=== PATIENT | female | born 1995 ===

== ENCOUNTER 2016-08-30 07:25 | Emergency (ER) | payer OTHER ==
[2016-08-30 07:49] VITALS: BMI 35.5
--- NOTE | 2016-08-30 10:04 | OBHP ---
Datetime: 08/30/2016 08:17 IP Adm Impression: Term, intrauterine IP Admit Plan: Observation/Evaluation Admit Comment, IP Provider: 21 year old , 1 SAB, 40+2wks by early u/s presents with complaints o f contractions that began last night, intesified this AM around 05:00, and moderate amount vaginal bl eeding that began around that time. She denies LOF, reports good movement. Last coitus 2 days a go. She has not eaten today. Care: [place] labs: GBS negative, rubella immune, VDRL: neg/neg, hpbSag: ng, HIV neg/neg, gc/ctL neg/ne g O: mild distress due to pain A: IUP 40+2 weeks in latent labor. vaginal bleeding likely secondary to cervical changes. P: will observe, monitor FHT, Re-check pt in [address] patel OB ADDENDUM: pt seen _ examined by me agree with above repeat exam @ 10:00 1.5cm/50/-3 p: d/c home labor precautions Extremities - PN: Normal Lungs - PN: Normal Heart - PN: Normal Neurologic - PN: Normal HEENT - PN: Normal General - PN: Normal FHR - Baseline A Provider: 110 Comments, ACOG Physical Exam: Sterile speculem exam: pooling of blood in speculum, cervical os visua lized small amount noted on glod after digital exam Gestation - Est Wks by US: 40+2 EGA AdmitDate IP: 40.2 Vital Signs Provider: Reviewed IP Chief Complaint: Vaginal bleeding NICHD Variability Prov Fetus A: Moderate 6-25bpm (Annotations: Data stored by CPN on behalf of user) NICHD Accel Fetus A IP Provider: 15X15 FHR Category Provider Fetus A: Category I NICHD Decel Fetus A IP Provider: None Dilatation, Provider: 1cm Effacement, Provider: thick Station, Provider: -2 Genitourinary Exam: Normal
== END 2016-08-30 23:00 | disposition home or self-care (01) ==
LOC: H.EROB2 07:25
DX: O47.1 False labor at or after 37 completed weeks of gestation (principal); Z3A.40 40 weeks gestation of pregnancy; O48.0 Post-term pregnancy

== ENCOUNTER 2016-08-31 09:27 | Inpatient (IN) | payer OTHER ==
[2016-08-31] MEDS: Lactated Ringer's 1,000 ML IV SCH ×4 (10:45→22:55)
[2016-08-31 11:06] VITALS: O2SAT 100
[2016-08-31 11:08] LABS: BASO % 0.2 % (0.0-2.0); EOS % 0.1 % (0.0-4.0); HEMATOCRIT 37.4 % (34.0-47.0); LYMPH # 1.5 K/uL (1.0-4.3); LYMPH % 9.4 % (20.0-40.0); MEAN CELL VOLUME 87.8 fl (81.0-99.0); MEAN CORPUSCULAR HEMOGLOBIN 29.4 pg (27.0-31.0); MEAN CORPUSCULAR HGB CONC 33.4 g/dL (33.0-37.0); MEAN PLATELET VOLUME 9.5 fl (7.2-11.7); MONO # 0.8 K/uL (0.0-0.8); MONO % 4.8 % (0.0-10.0); NEUT # 13.5 K/uL (1.8-7.0); NEUT % 85.5 % (50.0-75.0); PLATELET COUNT 240 K/uL (130-400); RED CELL DISTRIBUTION WIDTH 13.9 % (11.5-14.5); WHITE BLOOD COUNT 15.8 K/uL (4.8-10.8)
[2016-08-31] MEDS ORDERED: Oxytocin 30 units/LR 500ML 30 U/500 ML BAG IV ONE ×2 (11:23→20:44)
[2016-08-31] MEDS ORDERED: Fentanyl/Bupivacaine HCl 250 ML EPI ONE (11:41)
[2016-08-31 11:55] LABS: NEUTROPHIL 85 % (42-75); TOTAL CELLS COUNTED 100
--- NOTE | 2016-08-31 18:21 | OBADHP ---
Datetime: 08/31/2016 16:16 Presentation-Admit: Vertex IP Fetus A Comments: resolved late decel FHR - Baseline A Provider: 130 Contraction Comments Provider: 2-4min Vital Signs Provider: Reviewed NICHD Variability Prov Fetus A: Moderate 6-25bpm NICHD Accel Fetus A IP Provider: 15X15 FHR Category Provider Fetus A: Category I Dilatation, Provider: 4 Effacement, Provider: 90 Station, Provider: -2 Datetime: 08/31/2016 12:23 Pelvic Type - PN: Adequate Extremities - PN: Normal Abdomen - PN: Normal Lungs - PN: Normal Heart - PN: Normal General - PN: Normal Amniotic Fluid Color, Provider: Clear Membranes, Provider: Ruptured Pool Provider: Positive Nitrazine Provider: Positive IP Chief Complaint: Uterine contractions; Suspected ruptured membranes NICHD Decel Fetus A IP Provider: None Genitourinary Exam: Normal EGA AdmitDate IP: 40.3 IP Adm Impression: Term, intrauterine ; Active labor IP Admit Plan: Admit to unit; Initiate labor protocol; Initiate labor induction protocol Datetime: 08/31/2016 10:42 Admit Comment, IP Provider: 21 year old , 1 SAB, 40.3wks by U/S was here for contractions and V B yesterday. She was 1cm, she was monitored and sent home. - Today she is complaining of CTX and LOF. - She states the ctx continued to get stonger since she went home. At 5 am the contractions starte d occuring every 5 min. - At 7 am she noticed a gush of fluid from the vagina which has continued leaking. - Reports good movement. Last coitus 3 days ago. Has been taking her vitamins daily . LAst U/S was first week of july and the baby was aprox was 6lb. Care: [place] labs: GBS negative, rubella immune, VDRL: neg/neg, hpbSag: ng, HIV neg/neg, gc/ctL neg/ne g O: mild distress due to pain A: IUP 40.3 weeks is being admited for CTX and LOF, being admitted for initiation of labor potocol . P: - Continuous monitoring - Initiate labor protocol - IV fluid bolus - Oxytocin 30mg - Anaesthesia consult appreciated for epidural - CBC, Type and screen, RPR Case d.w dr amanda Diamond PGY-1 obh addendum: pt seen _ examinedby me with . agree with assessment andplan. Comments, ACOG Physical Exam: Speculum exam: Pooling noted, clear fluid Datetime: 08/30/2016 08:17 Neurologic - PN: Normal HEENT - PN: Normal Gestation - Est Wks by US: 40+2
--- NOTE | 2016-08-31 18:29 | OBPN ---
Datetime: 08/31/2016 16:16 IP Progress Impression: Rupture of membranes IP Progress Plan: Augmentation Contraction Comments Provider: 2-4min FHR - Baseline A Provider: 130 IP Fetus A Comments: resolved late decel Presentation-Admit: Vertex IP Progress Note Comment: s: comfortable with epdural p: restart pit at 1mU. pt advised of resolution of prior late decels and that pit is to be restarted Vital Signs Provider: Reviewed NICHD Accel Fetus A IP Provider: 15X15 FHR Category Provider Fetus A: Category I NICHD Variability Prov Fetus A: Moderate 6-25bpm Dilatation, Provider: 4 Effacement, Provider: 90 Station, Provider: -2 Datetime: 08/31/2016 12:23 Pool Provider: Positive Nitrazine Provider: Positive Membranes, Provider: Ruptured Amniotic Fluid Color, Provider: Clear NICHD Decel Fetus A IP Provider: None Datetime: 08/30/2016 08:17 Gestation - Est Wks by US: 40+2
[2016-08-31] MEDS ORDERED: ceFAZolin 2 GM in Sodium Chloride 0.9% 100 ML IVPB ONE (19:06)
[2016-08-31] MEDS ORDERED: Phenylephrine 10 mg/ml Inj ONE (19:14)
[2016-08-31] MEDS ORDERED: ePHEDrine 50 mg/ml Inj ONE (19:14)
[2016-08-31] MEDS ORDERED: Lidocaine 2% PF (10 ml) Amp ONE (19:14)
[2016-08-31] MEDS ORDERED: Lactated Ringer's 1,000 ML IV SCH (19:15)
[2016-08-31] MEDS ORDERED: Bupivacaine HCl/Epi 0.5% 1:20000 30 ML SOL IJ ONE (19:15)
[2016-08-31] MEDS ORDERED: Midazolam 2 MG/2 ML VIAL ONE (20:09)
[2016-08-31] MEDS ORDERED: Morphine 1 mg/ml preservative-free Inj(Duramorph) ONE (20:37)
[2016-08-31] MEDS ORDERED: Oxycodone/Acetaminophen 5/325 mg Tab PO PRN ×3 (21:24→21:42)
[2016-08-31] MEDS ORDERED: DiphenhydrAMINE 50 mg/ml Inj IVP PRN (21:42)
[2016-08-31 21:55] VITALS: BP 110/65; PULSE 110; RESP 16; TEMP 98
[2016-08-31] MEDS ORDERED: Simethicone 80 mg Chewtab PO SCH (22:00)
[2016-09-01] MEDS ORDERED: Lactated Ringer's 1,000 ML IV SCH (00:32)
[2016-09-01] MEDS ORDERED: DiphenhydrAMINE 50 mg/ml Inj IVP PRN (00:32)
[2016-09-01] MEDS ORDERED: Oxycodone/Acetaminophen 5/325 mg Tab PO PRN ×2 (00:32)
--- NOTE | 2016-09-01 07:13 | OP ---
PROCEDURE DATE: 08/31/2016 PREOPERATIVE DIAGNOSES: 1. A 40.3 week . 2. intolerance to contractions. 3. Spontaneous rupture of membranes. POSTOPERATIVE DIAGNOSES: 1. A 40.3 week . 2. intolerance to contractions. 3. Spontaneous rupture of membranes. SURGEON: Shahla Zhu MD. FIRST MEDICAL SOCIAL WORKER: Dr. Willa Garcia. SECOND MEDICAL SOCIAL WORKER: Dr. Mira Scruggs, PGY-1. ANESTHESIOLOGIST: Dr. Rodriguez. ANESTHESIA: Epidural. FINDINGS: Showed a viable male with a nuchal cord in direct OP presentation, Apgars of 9 and 9, and weight of 7 pounds 15 ounces. ESTIMATED BLOOD LOSS: 650 mL. COMPLICATIONS: There were no complications. DESTINATION: The patient to recovery room in satisfactory condition and to nursery. Ruiz catheter placed to drainage. INDICATIONS: The patient is a 21-year-old female, 2, para 0-0-1-0 who presented at 40.3 weeks with spontaneous rupture of membranes and irregular contractions. She was admitted and received an epidural. Following the epidural, augmentation with Pitocin was initiated. The patient developed late variable type decelerations and so the Pitocin was discontinued. Following recovery the pitocin was restarted and recurrent late decelerations occurred. The pitocin was discontinued and indications for were discussed with the patient. An informed consent was obtained. PROCEDURE: The patient was taken to the operating room where her epidural was topped off. She was placed in dorsal supine position with a leftward tilt and prepped and draped in routine sterile fashion. A Pfannenstiel skin incision was made with the knife and this was carried down to the underlying rectus fascia, which was incised in the midline and extended bilaterally. The inferior rectus fascial edge was grasped with Kochers and the underlying rectus muscle dissected off. The same procedure was performed along the superior rectus fascial edge. The peritoneum was identified, tented upward and incised superiorly and inferiorly. The bladder blade was placed and a bladder flap created using sharp and blunt dissection. A lower uterine transverse incision was made with the knife and the uterine cavity entered with the Deanne. The uterine incision was extended manually in a superior and inferior manner. The was noted to be direct OP. The 's head was delivered followed by remaining portion of the baby. The mouth and nares were suctioned. Cord was clamped and cut. The baby had handed off to the awaiting manufacturing scheduler. Cord blood was collected. Placenta was delivered spontaneously and intact. The uterus was exteriorized and cleared of all clots and debris. The uterine incision was reapproximated with 0 Monocryl in a running locked fashion followed by an imbricated stitch with 0 Monocryl. Excellent hemostasis obtained. The abdomen was irrigated and cleared of all clots and debris. The uterus was returned to the abdomen. The uterine incision was reinspected and excellent hemostasis confirmed. The pelvis was irrigated and cleared of all clots and debris. The peritoneum was reapproximated with 2-0 plain in a running fashion. The muscles were reapproximated with 2-0 Vicryl in a simple interrupted fashion. The fascia was reapproximated with 0 Vicryl in a running fashion beginning in the right lateral corner going to midline, another stitch beginning left lateral corner going to midline, each suture was tied individually. The wound was irrigated. Excellent hemostasis confirmed. The subcutaneous layer was closed with 2-0 plain gut in a simple interrupted fashion. The skin was reapproximated with subcuticular stitches of 4-0 Monocryl. All sponge, lap, needle counts were correct x 2. The patient returned to recovery room in satisfactory condition. Of note, Dr. Willa Garcia was my first surgical garment inspector. She assisted in surgical entry, surgical exposure, hemostasis, delivery of the baby and surgical closure. Shahla Zhu MD cc: [id number] TT: 09/01/2016 07:12:55 nestor PATEL
[2016-09-01] MEDS: Simethicone 80 mg Chewtab PO SCH ×4 (11:02→22:49)
--- NOTE | 2016-09-01 17:29 | CP.PCM.CON ---
History of Present Illness - History of Present Illness History of Present Illness: 21 y/o female with PMH was admitted at 40 week for delivery. Patient underwent yesterday. Medicine consult called for HR >100 Patient at present complaining of pain to surgical incision . Denies any chest pain, palpitations, SOB, dizziness. Ruiz catheter removed around 12 Pm and able to void freely.Denies any calf tenderness. Has been having vaginal bleeding post normal quantity. At present Bp 97/57 Hr 107 afebrile 98.6 saturating 100 5 in RA Allergies ; NKDA PMH ; none Medications; vitamins Surgery ; Family history : grandparents had DM Social history ; lives in [place] with mother, denies any toxic habits ROS ; 14 point review of system negative except above in History Review of Systems - Review of Systems All systems: reviewed and no additional remarkable complaints except Past Patient History - Infectious Disease Hx of Infectious Diseases: None - Tetanus Immunizations Tetanus Immunization: Unknown - Past Medical History & Family History Past Medical History?: No Past Family History: Reviewed and not pertinent - Past Social History Smoking Status: Never Smoked Chewing Tobacco Use: No Cigar Use: No Alcohol: None Drugs: Denies Home Situation {Lives}: With Family Domestic Violence: Negative Meds Allergies/Adverse Reactions: Allergies Allergy/AdvReac Type Severity Reaction Status Date / Time No Known Allergies Allergy Verified 08/30/16 07:49 - Medications Medications: Current Medications Diphenhydramine HCl (Benadryl) 50 mg IVP Q6 PRN PRN Reason: Itching / Pruritus Ibuprofen (Motrin Tab) 600 mg PO Q4H PRN PRN Reason: Pain, Mild (1-3) Last Admin: 09/01/16 13:18 Dose: 600 mg Ketorolac Tromethamine (Toradol) 30 mg IVP Q6 PRN PRN Reason: For PCEA Breakthrough Pain Metoclopramide HCl (Reglan) 10 mg IVP Q6H PRN PRN Reason: Nausea/Vomiting Oxycodone/Acetaminophen (Percocet 5/325 Mg Tab) 1 tab PO Q4 PRN PRN Reason: Pain, moderate (4-7) Stop: 09/03/16 21:25 Oxycodone/Acetaminophen (Percocet 5/325 Mg Tab) 2 tab PO Q4 PRN PRN Reason: Pain, severe (8-10) Stop: 09/03/16 21:25 Oxycodone/Acetaminophen (Percocet 5/325 Mg Tab) 1 tab PO Q4 PRN PRN Reason: For PCEA Breakthrough Pain Stop: 09/03/16 21:43 Sennosides (Senokot Tab) 17.2 mg PO HS KAMILA Simethicone (Mylicon Chew Tab) 80 mg PO Q6 [facility] Last Admin: 09/01/16 16:06 Dose: 80 mg Physical Exam - Constitutional Appears: Non-toxic, No Acute Distress - Head Exam Head Exam: ATRAUMATIC, NORMAL INSPECTION, NORMOCEPHALIC - Eye Exam Eye Exam: EOMI, Normal appearance, PERRL Pupil Exam: NORMAL ACCOMODATION - ENT Exam ENT Exam: Mucous Membranes Moist, Normal Exam - Neck Exam Neck exam: Positive for: Full Rom, Normal Inspection - Respiratory Exam Respiratory Exam: Clear to Auscultation Bilateral, NORMAL BREATHING PATTERN. absent: Rales, Rhonchi, Wheezes - Cardiovascular Exam Cardiovascular Exam: Tachycardia, RRR, +S1, +S2. absent: JVD - GI/Abdominal Exam GI & Abdominal Exam: Distended, Soft, Tenderness (lower abdomen to surgical incision). absent: Guarding, Rebound - Rectal Exam Rectal Exam: Deferred - Extremities Exam Extremities exam: Positive for: normal capillary refill, normal inspection, pedal pulses present. Negative for: calf tenderness, pedal edema - Back Exam Back exam: NORMAL INSPECTION - Neurological Exam Neurological exam: Alert, CN II-XII Intact, Oriented x3, Reflexes Normal - Psychiatric Exam Psychiatric exam: Normal Affect, Normal Mood - Skin Skin Exam: Dry, Intact, Normal Color, Warm Results - Vital Signs Recent Vital Signs: Last Vital Signs Temp 98.0 F 08/31/16 23:31 Pulse 110 H 08/31/16 21:55 Resp 16 08/31/16 21:55 BP 110/65 08/31/16 21:55 Pulse Ox 100 08/31/16 21:55 - Labs Result Diagrams: 08/31/16 10:59 - EKG Data EKG shows normal: Sinus rhythm Rate: Normal, Tachycardia Assessment & Plan - Assessment and Plan (Free Text) Assessment: 21 y/o female with PMH was admitted at 40 week for delivery. Patient underwent yesterday. Medicine consult called for HR >100 Patient at present complaining of pain to surgical incision . Denies any chest pain, palpitations, SOB, dizziness. Ruiz catheter removed around 12 Pm and able to void freely.Denies any calf tenderness. Has been having vaginal bleeding post normal quantity. At present Bp 97/57 Hr 107 afebrile 98.6 saturating 100 5 in RA 1. Sinus tachycardia Most likely physiologic sinus tachycardia EKG showed no ST-T wave abnormalities Continue hydration Check CBC, BMP Incentive spirometry use Pain management promote ambulation
[2016-09-01 18:06] LABS: HEMATOCRIT 33.7 % (34.0-47.0); MEAN CELL VOLUME 87.7 fl (81.0-99.0); RED CELL DISTRIBUTION WIDTH 13.9 % (11.5-14.5); WHITE BLOOD COUNT 18.2 K/uL (4.8-10.8)
[2016-09-01 18:31] LABS: BLOOD UREA NITROGEN 7 mg/dl (7-17); CALCIUM 8.9 mg/dL (8.4-10.2); CARBON DIOXIDE 24 mmol/L (22-30); CHLORIDE 100 mmol/L (98-107); GFR AFRICAN-AMERICAN > 60; GLUCOSE,RANDOM 87 mg/dL (65-105); POTASSIUM 4.1 MMOL/L (3.6-5.0); SODIUM 132 mmol/l (132-148)
--- NOTE | 2016-09-01 22:50 | OBPPN ---
Datetime: 09/01/2016 06:04 PP Pain Prov: Within normal limits PP Nausea Prov: Denies PP Flatus Prov: No PP BM Prov: No PP Breasts Prov: Normal PP Heart Prov: Normal PP Lungs Prov: Normal PP Abdomen/Uterus Prov: Normal PP Lochia Prov: Normal PP Vulva/Perineum Prov: Normal PP CVA Tenderness Prov: Normal PP Extremities Prov: Normal PP C/S Incision Prov: Normal PP Progress Prov: Normal PP Comments Phys Exam Prov: Abd: + BS, soft. Uterus: Firm at level umbilicus incision: covered by steril bandage PP Impression Prov: Normal progression PP Plan Prov: Continue present management PP Progress Note Prov: 21 y/o seen and examined at bedside. Patient s/p C section 9 hours ago . Had uneventful overnight. Pain controlled w/ pain meds. and bottle feeding baby. NPO. . Lochia is less than menses in volume. Ruiz placed w/ no blood noted 700 ml urine. Reports no fla tus and no bowel movement yest. Denies fevers, chills, n/v/d, CP/SOB, lightheadedness and calf pain Assessment: 21 y/o s/p C section due to intolerance to contractions.tolerating pain w/ medication,adequate urine output, doing well on POD1. Plan: - Ibuprofen 600 mg 1 tab Q6h PO prn for mild pain. -Percocet 5/325 mg 1-2 tab Q 4h PRN mod-sev pain -Encourage breast feeding and ambulation. Cary Scruggs PGY1 OB Hospitalist note: On rounds, this pt was seen and examined by me. Agree with above note. MAHND O Vital Signs Provider PP: Reviewed; Within Normal Limits
[2016-09-02] MEDS: Simethicone 80 mg Chewtab PO SCH ×4 (05:56→21:59)
[2016-09-02] MEDS: Oxycodone/Acetaminophen 5/325 mg Tab PO PRN ×3 (08:29→22:00)
--- NOTE | 2016-09-02 09:54 | OBPPN ---
Datetime: 09/02/2016 06:06 PP Pain Prov: Within normal limits PP Nausea Prov: Denies PP Flatus Prov: Yes PP BM Prov: No PP Heart Prov: Normal PP Lungs Prov: Normal PP Abdomen/Uterus Prov: Normal PP Lochia Prov: Normal PP Vulva/Perineum Prov: Normal PP CVA Tenderness Prov: Normal PP Extremities Prov: Normal PP C/S Incision Prov: Normal PP Progress Prov: Normal PP Comments Phys Exam Prov: Uterus: firm at level umbilicus Incision: C/D/I, no erythema Abd: + Bs, not distended, minimal Td to palpation PP Impression Prov: Normal progression PP Plan Prov: Continue present management PP Progress Note Prov: 21 y/o seen and examined at bedside in the morning after going to rest room.Had uneventful overnight. Pain controlled w/ pain meds. and bottle feeding baby.To lerating regular diet.. Lochia is less than menses in volume.Voiding w/o difficulty w/ no blood note d. Reports flatus and no bowel movement yet. Denies fevers, chills, n/v/d, CP/SOB, lightheadednes s and calf pain.Patient had sinus tachycardia yesterday. Denies palpitation, chest pain, SOB during r ound. OOB and ambulating w/o dizziness. HR: 96 b/min during round Assessment: 21 y/o s/p C section due to intolerance to contractions.tolerating pain w/ medication,adequate urine output, doing well on POD2. Plan: - Ibuprofen 600 mg 1 tab Q6h PO prn for mild pain. -Percocet 5/325 mg 1-2 tab Q 4h PRN mod-sev pain -Encourage breast feeding and ambulation. -Nurse made me aware in the morning about sinus tachy yesterday. At this moment patient hemodynami ivory stable,afebrile. lochia normal amount. EKG HR: 106/min, Cary Scruggs PGY1 OBH ADDENDUM: pt seen _ examined by me. agree w/ assessment and pln. Vital Signs Provider PP: Reviewed Vital Signs Provider Details PP: HR: sinus tachycardia HR: 96 b/min on round. afebrile,BP normal.
--- NOTE | 2016-09-02 13:33 | CARD ---
APPROVED REPORT EKG Measurement Heart [id number] <Conclusion> Sinus tachycardia Otherwise normal ECG
--- NOTE | 2016-09-02 16:24 | CP.PCM.PN ---
Subjective - Date & Time of Evaluation Date of Evaluation: 09/02/16 Time of Evaluation: 14:00 - Subjective Subjective: Patient was seen and followed up on medical consult for tachycardia. Patient at present sitting comfortably in chair, denies any chest pain, SOB, palpitations. Pain is better controlled, ambulating in unit and tolerating PO intake. Still with some vaginal bleeding but normal amount. Breast feeding. No acute issues overnight HR 106 Objective - Vital Signs/Intake and Output Vital Signs (last 24 hours): Temp Pulse Resp BP Pulse Ox 98.0 F 110 H 16 110/65 100 08/31/16 23:31 08/31/16 21:55 08/31/16 21:55 08/31/16 21:55 08/31/16 21:55 - Medications Medications: Current Medications Diphenhydramine HCl (Benadryl) 50 mg IVP Q6 PRN PRN Reason: Itching / Pruritus Ibuprofen (Motrin Tab) 600 mg PO Q4H PRN PRN Reason: Pain, Mild (1-3) Last Admin: 09/02/16 14:30 Dose: 600 mg Ketorolac Tromethamine (Toradol) 30 mg IVP Q6 PRN PRN Reason: For PCEA Breakthrough Pain Metoclopramide HCl (Reglan) 10 mg IVP Q6H PRN PRN Reason: Nausea/Vomiting Oxycodone/Acetaminophen (Percocet 5/325 Mg Tab) 1 tab PO Q4 PRN PRN Reason: Pain, moderate (4-7) Stop: 09/03/16 21:25 Last Admin: 09/02/16 14:31 Dose: 1 tab Oxycodone/Acetaminophen (Percocet 5/325 Mg Tab) 2 tab PO Q4 PRN PRN Reason: Pain, severe (8-10) Stop: 09/03/16 21:25 Oxycodone/Acetaminophen (Percocet 5/325 Mg Tab) 1 tab PO Q4 PRN PRN Reason: For PCEA Breakthrough Pain Stop: 09/03/16 21:43 Sennosides (Senokot Tab) 17.2 mg PO HS KAMILA Last Admin: 09/01/16 22:49 Dose: 17.2 mg Simethicone (Mylicon Chew Tab) 80 mg PO Q6 KAMILA Last Admin: 09/02/16 14:34 Dose: 80 mg - Labs Labs: 09/01/16 18:02 09/01/16 18:02 - Constitutional Appears: Non-toxic, No Acute Distress, In Acute Distress - Head Exam Head Exam: ATRAUMATIC, NORMAL INSPECTION, NORMOCEPHALIC - Eye Exam Eye Exam: EOMI, Normal appearance, PERRL Pupil Exam: NORMAL ACCOMODATION - ENT Exam ENT Exam: Mucous Membranes Moist, Normal Exam - Neck Exam Neck Exam: Full ROM, Normal Inspection - Respiratory Exam Respiratory Exam: Clear to Ausculation Bilateral, NORMAL BREATHING PATTERN. absent: Rales, Rhonchi, Wheezes - Cardiovascular Exam Cardiovascular Exam: REGULAR RHYTHM, RRR, +S1, +S2. absent: JVD - GI/Abdominal Exam GI & Abdominal Exam: Soft, Tenderness (to lower abdomen to surgical incision), Normal Bowel Sounds. absent: Distended, Guarding, Rebound - Rectal Exam Rectal Exam: Deferred - Extremities Exam Extremities Exam: Full ROM, Normal Capillary Refill, Normal Inspection. absent : Calf Tenderness, Pedal Edema - Back Exam Back Exam: NORMAL INSPECTION - Neurological Exam Neurological Exam: Alert, Awake, CN II-XII Intact, Oriented x3 - Psychiatric Exam Psychiatric exam: Normal Affect, Normal Mood - Skin Skin Exam: Dry, Intact, Normal Color, Warm Assessment and Plan - Assessment and Plan (Free Text) Assessment: 1. Sinus tachycardia HR 106 patient is hemodynamically stable Blood work up reviewed no further work up necessary Will sign off the case please re consult
--- NOTE | 2016-09-02 21:07 | OBPPN ---
Datetime: 09/01/2016 06:04 PP Progress Note Prov: 21 y/o seen and examined at bedside. Patient s/p C section 9 hours ago . Had uneventful overnight. Pain controlled w/ pain meds. and bottle feeding baby. NPO. . Lochia is less than menses in volume. Ruiz placed w/ no blood noted 700 ml urine. Reports no fla tus and no bowel movement yest. Denies fevers, chills, n/v/d, CP/SOB, lightheadedness and calf pain Assessment: 21 y/o s/p C section due to intolerance to contractions.tolerating pain w/ medication,adequate urine output, doing well on POD1. Plan: - Ibuprofen 600 mg 1 tab Q6h PO prn for mild pain. -Percocet 5/325 mg 1-2 tab Q 4h PRN mod-sev pain -Encourage breast feeding and ambulation. Cary Scruggs PGY1 OB Hospitalist note: On rounds, this pt was seen and examined by me. Agree with above note. LEONARD Holland Addendum...late entry september 02 for september 01...notified of maternal tachycardia...called Dr Muñiz ([facility] hospitalist to see pt)
[2016-09-03] MEDS: Simethicone 80 mg Chewtab PO SCH ×2 (04:09→14:02)
--- NOTE | 2016-09-03 08:51 | OBPPN ---
Datetime: 09/03/2016 05:32 PP Pain Prov: Within normal limits PP Nausea Prov: Denies PP Flatus Prov: Yes PP BM Prov: No PP Breasts Prov: Normal PP Heart Prov: Normal PP Lungs Prov: Normal PP Abdomen/Uterus Prov: Normal PP Lochia Prov: Normal PP Vulva/Perineum Prov: Normal PP CVA Tenderness Prov: Normal PP Extremities Prov: Normal PP C/S Incision Prov: Normal PP Progress Prov: Normal PP Comments Phys Exam Prov: Uterus: firm below umbilicus Incision: C/D/I, no erythema Abd: + Bs, not distended, minimal Td to palpation PP Impression Prov: Normal progression PP Plan Prov: Continue present management; Discharge PP Progress Note Prov: 21 y/o seen and examined at bedside.Had uneventful overnight. Pain con trolled w/ pain meds. and bottle feeding baby.Tolerating regular diet.. Lochia is less than menses in volume.Voiding w/o difficulty w/ no blood noted. Reports flatus, but no bowel movem ent yet. Denies fevers, chills, n/v/d, CP/SOB, lightheadedness and calf pain.OOB and ambulating w/o dizziness. Assessment: 21 y/o s/p C section due to intolerance to contractions.tolerating pain w/ medication,adequate urine output, doing well on POD3. Plan: - Ibuprofen 600 mg 1 tab Q6h PO prn for mild pain. -Percocet 5/325 mg 1-2 tab Q 4h PRN mod-sev pain -Encourage breast feeding and ambulation. -Discharge home today Cary Scruggs PGY1 OB Hospitalist Addendum: Pt seen and examined by me. Agree w/ above. POD 3 s/p primary c/s for N RFHT, doing well, breast feeding. Discharge home today. (ES) Vital Signs Provider PP: Reviewed; Within Normal Limits
== END 2016-09-03 17:25 | disposition home or self-care (01) | DRG 371 ==
LOC: H.EROB2 09:27 → H.L&D 10:28 → H.OB/GYN 09-01 00:15
PROVIDERS: ADMIT Obstetrics & Gynecology; ATTEND Obstetrics & Gynecology
PROC: 10D00Z1 Extraction of Products of Conception, Low, Open Approach (ICD-10-PCS; principal; 2016-08-31)
PROC: 4A1HXCZ Monitoring of Products of Conception, Cardiac Rate, External Approach (ICD-10-PCS; 2016-08-31)
DX: O76 Abnormality in fetal heart rate and rhythm complicating labor and delivery (principal); O42.02 Full-term premature rupture of membranes, onset of labor within 24 hours of rupture; Z3A.40 40 weeks gestation of pregnancy; O69.81X0 Labor and delivery complicated by cord around neck, without compression, not applicable or unspecified; Z37.0 Single live birth